=== PATIENT | male | born 1945 | race Caucasian/White ===

== ENCOUNTER 2017-06-20 20:54 | Inpatient (IN) | payer OTHER, MEDICARE ==
[~2017-06-20] VITALS: Ht 165.1 cm; Wt 62.6 kg
[2017-06-20 20:57] VITALS: BP 166/70; PULSE 53; RESP 16; TEMP 97.7; O2SAT 98
[2017-06-20 22:11] VITALS: BP 215/93; PULSE 71; RESP 18; O2SAT 98
--- NOTE | 2017-06-20 23:06 | PD ---
HPI Chief Complaint: Complaint Time Seen by Provider: 23:04 Travel History International Travel<30 days: No Contact w/Intl Traveler<30days: No Traveled to known affect area: No History of Present Illness HPI 72-year-old male with history of hypertension and diabetes presents to the emergency department for large mass to the groin. Reportedly at 8:30 this evening patient complained of feeling a pop and sensation to his family and they brought him to the emergency room for evaluation. Patient has had I wall hernia for some time. Patient complained of nausea there is been no vomiting. PFSH Past Medical History Narrative Medical Diabetes hypertension prostate cancer prostatectomy tobacco use; nursing notes reviewed Cancer: Yes (PROSTATE) Diabetes: Yes Patient Takes Glucophage: Yes Diminished Hearing: Yes (TANANA) Hypertension: Yes Past Surgical History Eye Surgery: Yes (BILAT CATARACTS) Genitourinary Surgery: Yes (PROSTATECTOMY) Social History Alcohol Use: Yes (WINE AT NIGHT) Tobacco Use: Yes (1PPD) Substance Use: No Allergies-Medications (Allergen,Severity, Reaction): Coded Allergies: No Known Allergies (Unverified , 06/20/17) Reported Meds & Prescriptions Reported Meds & Active Scripts Active Reported [id number] Ethyl Esters 1 Gm Cap 2 Gm PO BID Metformin (Metformin HCl) 850 Mg Tab 850 Mg PO TIDPC Fenofibrate 160 Mg Tab 200 Mg PO DAILY Aspirin 81 Mg Chew 81 Mg CHEW DAILY Hydrochlorothiazide 25 Mg Tab 25 Mg PO DAILY Glipizide 5 Mg Tab 5 Mg PO BIDAC Take 30 minutes before a meal Citalopram (Citalopram Hydrobromide) 20 Mg Tab 20 Mg PO DAILY Amlodipine (Amlodipine Besylate) 5 Mg Tab 5 Mg PO DAILY Acarbose 100 Mg Tab 100 Mg PO HS Take with first bite of meal. Acarbose 50 Mg Tab 50 Mg PO AFTERNOON Acarbose 50 Mg Tab 50 Mg PO DAILY Lisinopril 40 Mg Tab 40 Mg PO DAILY Pravastatin 80 Mg Tab 80 Mg PO DAILY Narrative Medication Is metformin, pravastatin, amlodipine, HCTZ, citalopram, aspirin, lisinopril, fenofibrate, glipizide, acarbose Review of Systems Except as stated in HPI: all other systems reviewed are Neg General / Constitutional: No: Fever, Chills HENT: No: Congestion Respiratory: No: Shortness of Breath Gastrointestinal: Positive: Nausea, Abdominal Pain Genitourinary: Positive: Other Musculoskeletal: No: Myalgias, Arthralgias (pelvic mass) Neurologic: No: Weakness Psychiatric: No: Anxiety Hematologic/Lymphatic: No: Lymph Node Enlargement Physical Exam Narrative GENERAL: Well-developed well-nourished male in no acute distress no respiratory distress SKIN: Warm and dry. HEAD: Normocephalic. EYES: No scleral icterus. No injection or drainage. NECK: Supple, trachea midline. No JVD or lymphadenopathy. CARDIOVASCULAR: Regular rate and rhythm without murmurs, gallops, or rubs. RESPIRATORY: Breath sounds equal bilaterally. No accessory muscle use. GASTROINTESTINAL: Abdomen soft, non-tender, nondistended. circumcised male large inguinal hernia with scrotal edema/ MUSCULOSKELETAL: No cyanosis, or edema. BACK: Nontender without obvious deformity. No CVA tenderness. Data Data Last Documented VS Vital Signs Date Time Temp Pulse Resp B/P (MAP) Pulse Ox O2 Delivery O2 Flow Rate FiO2 06/20/17 22:11 71 18 215/93 (133) 98 Room Air 06/20/17 20:57 97.7 Orders Orders Basic Metabolic Panel (Bmp) (06/20/17 23:04) Complete Blood Count With Diff (06/20/17 23:04) Prothrombin Time / Inr (Pt) (06/20/17 23:04) Act Partial Throm Time (Ptt) (06/20/17 23:04) Iv Access Insert/Monitor (06/20/17 23:04) Ecg Monitoring (06/20/17 23:04) Oximetry (06/20/17 23:04) Sodium Chloride 0.9% Flush (Ns Flush) (06/20/17 23:15) Ice/Cold Pack (06/20/17 23:04) Ondansetron Inj (Zofran Inj) (06/20/17 23:15) Hydromorphone Pf Inj (Dilaudid Pf Inj) (06/20/17 23:15) NPO (06/20/17 23:57) Hydromorphone Pf Inj (Dilaudid Pf Inj) (06/21/17 00:15) Labs Laboratory Tests Test 06/20/17 22:50 White Blood Count 13.4 TH/MM3 Red Blood Count 3.86 MIL/MM3 Hemoglobin 11.8 GM/DL Hematocrit 34.2 % Mean Corpuscular Volume 88.5 FL Mean Corpuscular Hemoglobin 30.5 PG Mean Corpuscular Hemoglobin Concent 34.5 % Red Cell Distribution Width 13.5 % Platelet Count 296 TH/MM3 Mean Platelet Volume 8.2 FL Neutrophils (%) (Auto) 85.5 % Lymphocytes (%) (Auto) 9.0 % Monocytes (%) (Auto) 4.7 % Eosinophils (%) (Auto) 0.4 % Basophils (%) (Auto) 0.4 % Neutrophils # (Auto) 11.4 TH/MM3 Lymphocytes # (Auto) 1.2 TH/MM3 Monocytes # (Auto) 0.6 TH/MM3 Eosinophils # (Auto) 0.1 TH/MM3 Basophils # (Auto) 0.1 TH/MM3 CBC Comment DIFF FINAL Differential Comment Prothrombin Time 10.8 SEC Prothromb Time International Ratio 1.0 RATIO Activated Partial Thromboplast Time 24.9 SEC Blood Urea Nitrogen 29 MG/DL Creatinine 1.08 MG/DL Random Glucose 259 MG/DL Calcium Level 9.2 MG/DL Sodium Level 130 MEQ/L Potassium Level 4.7 MEQ/L Chloride Level 97 MEQ/L Carbon Dioxide Level 23.2 MEQ/L Anion Gap 10 MEQ/L Estimat Glomerular Filtration Rate 68 ML/MIN MDM Medical Decision Making Medical Screen Exam Complete: Yes Emergency Medical Condition: Yes Medical Record Reviewed: Yes Differential Diagnosis Inguinal hernia, hernia strangulation or incarceration Narrative Course Patient placed in supine position denies pack applied Zofran and Dilaudid administered Unable to successfully reduce incarcerated right inguinal hernia; additional Dilaudid 0.5 mg administered; call placed to general surgery regarding inability to reduce inguinal hernia and patient informed of plan to take patient to the OR tonight per Dr. Chávez OR --given patient's name; ice pack re-applied @ 12:15 hr hernia now successfully reduced --call placed to Dr Valdez --now at bedside; admit to medicine will repair hernia in the AM Physician Communication Physician Communication call placed to general surgeon discussed with Dr Valdez --notify OR w name; call placed to residents service for Dr Nagy Diagnosis Primary Impression: Inguinal hernia with incarceration Admitting Information Admitting Physician Requests: Admit Sunshine Lerner MD Jun 20, 2017 23:06
[2017-06-20] MEDS ORDERED: SODIUM CHLORIDE 0.9% FLUSH 10 ML FLUSH IV FLUSH PRN (23:15)
[2017-06-20] MEDS ORDERED: HYDROmorphone HCL PF 0.5 MG/0.5 ML SYRINGE IV PUSH ONE (23:15)
[2017-06-20] MEDS ORDERED: ONDANSETRON HCL 4 MG/2 ML VIAL IV PUSH ONE (23:15)
[2017-06-20 23:31] LABS: AUTOMATED NEUTROPHIL # 11.4 TH/MM3 (1.8-7.7); BASOPHIL # 0.1 TH/MM3 (0-0.2); BASOPHIL % 0.4 % (0.0-2.0); EOSINOPHIL # 0.1 TH/MM3 (0-0.4); EOSINOPHIL % 0.4 % (0.0-4.0); HEMATOCRIT 34.2 % (39.0-51.0); HEMO FLAGS DIFF FINAL; LYMPHOCYTE # 1.2 TH/MM3 (1.0-4.8); MEAN CELL VOLUME 88.5 FL (80.0-100.0); MEAN CORPUSCULAR HEMOGLOBIN 30.5 PG (27.0-34.0); MEAN CORPUSCULAR HGB CONC 34.5 % (32.0-36.0); MONO % 4.7 % (0.0-8.0); NEUT % 85.5 % (16.0-70.0); PLATELET COUNT 296 TH/MM3 (150-450); RED BLOOD COUNT 3.86 MIL/MM3 (4.50-5.90); RED CELL DISTRIBUTION WIDTH 13.5 % (11.6-17.2); WHITE BLOOD COUNT 13.4 TH/MM3 (4.0-11.0)
[2017-06-20 23:46] LABS: APTT (PATIENT) 24.9 SEC (24.3-30.1); PROTHROMBIN TIME - PATIENT 10.8 SEC (9.8-11.6)
[2017-06-20] MEDS ORDERED: ASPI81CH CHEW (23:59)
[2017-06-20] MEDS ORDERED: CITA20TA4 PO (23:59)
[2017-06-20] MEDS ORDERED: AMLO5TAB2 PO (23:59)
[2017-06-20] MEDS ORDERED: FENO160T PO (23:59)
[2017-06-20] MEDS ORDERED: LISI40TA PO (23:59)
[2017-06-20] MEDS ORDERED: ACAR50TA PO ×2 (23:59)
[2017-06-20] MEDS ORDERED: METF850T PO (23:59)
[2017-06-20] MEDS ORDERED: HYDR25TA5 PO (23:59)
[2017-06-20] MEDS ORDERED: OMEG1CAP28 PO (23:59)
[2017-06-20] MEDS ORDERED: GLIP5TAB8 PO (23:59)
[2017-06-20] MEDS ORDERED: PRAV80TA2 PO (23:59)
[2017-06-20] MEDS ORDERED: ACAR100T PO (23:59)
[2017-06-21] VITALS (8 sets, daily range): BP systolic 153–205; BP diastolic 57–84; PULSE 63–90; RESP 16–18; TEMP 96.9–98.8; O2SAT 96–99
[2017-06-21 00:01] LABS: BICARBONATE 23.2 MEQ/L (21.0-32.0); POTASSIUM 4.7 MEQ/L (3.5-5.1)
[2017-06-21] MEDS ORDERED: HYDROmorphone HCL PF 0.5 MG/0.5 ML SYRINGE IV PUSH ONE (00:15)
[2017-06-21] MEDS ORDERED: ceFAZolin 2 GM PREMIX 50 ML IV SCH (01:00)
[2017-06-21] MEDS ORDERED: NALOXONE HCL 0.4 MG/ML AMP IV PUSH PRN (01:45)
[2017-06-21] MEDS ORDERED: SODIUM CHLORIDE 0.9% FLUSH 10 ML FLUSH IV FLUSH PRN (01:45)
[2017-06-21] MEDS ORDERED: LACTATED RINGER'S 1000 ML IV PRN (02:45)
[2017-06-21] MEDS ORDERED: INSULIN HUMAN REGULAR 1,000 UNITS/10 ML VIAL SQ PRN (02:45)
[2017-06-21] MEDS ORDERED: CHLORHEXIDINE GLUCONATE 2 % 1 PACK (2 CLOTHS) TOPICAL PRN (02:45)
[2017-06-21] MEDS ORDERED: METOPROLOL TARTRATE 25 MG TAB PO PRN (02:45)
[2017-06-21] MEDS ORDERED: SODIUM CHLORID 0.9% 500 ML IV PRN (02:45)
[2017-06-21] MEDS ORDERED: POVIDONE IODINE 5% (ANTISEPSIS KIT) 4 APPLICATIONS EACH NARE PRN (02:45)
--- NOTE | 2017-06-21 05:25 | MB ---
cc: SCOTT NAGY MD, JOSEPH D. M.D. DATE OF CONSULTATION 06/20/2017 REASON FOR CONSULTATION Incarcerated inguinal hernia right side. HISTORY This is a pleasant 72-year-old gentleman who earlier today, felt a pop in his right groin and had some pain. He was seen by Dr. Lerner who attempted to reduce a large inguinal hernia with bowel. This was unable to be done. They called me in to see the patient. Right before I saw the patient she and Dr. Nagy had reduced the hernia by giving him a little bit more Dilaudid, family at the bedside. He is still having a fair amount of discomfort. He has never had anything like this before where it stuck out but he has known we has had a hernia for he cannot remember how long. PAST HISTORY Significant for - 1. Diabetes. 2. Hypertension. 3. Total prostatectomy about three years ago. This was done laparoscopically over in [place]. 4. He is hard of hearing. No coronary artery disease or pulmonary issues. He had a colonoscopy in the last few years. No other GI symptoms. ALLERGIES He is not known to be allergic to anything. MEDICATIONS 1. Metformin. 2. Finofibrate. 3. Aspirin. 4. Hydrochlorothiazide. 5. Glipizide. 6. Amlodipine. 7. Lisinopril. 8. Pravastatin. PHYSICAL EXAMINATION GENITALIA: On physical exam he is a pleasant gentleman. He has been slightly sedated; his family is at the bedside. He is able to converse with me. He still says his right groin is tender. NECK: Supple. CHEST: Clear. HEART: Regular rate. ABDOMEN: Slightly obese, soft without rebound or guarding. He has an inguinal hernia which is tender. It is reduced at this time. No umbilical hernia. EXTREMITIES: Moves all extremities well; no clubbing, cyanosis or edema. NEUROLOGIC: He is alert. He has been sedated. LABORATORY DATA He has a white count of 13, H&H of 11 and 34. Chemistry showed glucose of 259 and creatinine of 1. ASSESSMENT 1. Incarcerated hernia recently reduced. 2. Diabetes with elevated blood sugar. 3. Slightly elevated white count. 4. Slightly anemic as well. PLAN At this time I think getting him admitted to the medicine service, getting his sugars under control and will repair this tomorrow after his sugar has been controlled as long as he is medically stable. This is discussed with the family at the bedside. They appear to understand. I will keep him n.p.o. and await medical treatment of his medical issues. Yoni Valdez MD JDB/SSB /12:53 AM /5:11 AM
[2017-06-21] MEDS: SODIUM CHLORIDE 0.9% FLUSH 10 ML FLUSH IV FLUSH SCH ×2 (09:00→21:00)
--- NOTE | 2017-06-21 10:43 | HHI.HP ---
[facility] Saurabh Nagy MD Admission Diagnosis R inguinal hernia, post reduction Diagnoses: (1) Inguinal hernia with incarceration Chief Complaint: "I got a hernia." Travel History International Travel<30 Days: No Contact w/Intl Traveler <30 Da: No Traveled to Known Affected Are: No History of Present Illness Written by Binta Stratton, acting as scribe for Dr. Burleson on 06/21/17 at 10:35. This note was transcribed by scribe Binta Stratton PA-C I, Dr. Alonzo Burleson personally performed the history, physical exam, and medical decision making; and confirmed the accuracy of the information in the transcribed note. Authenticated by Dr. Alonzo Burleson on 06/21/17 at 16:42. This is a pleasant 72-year-old male patient with past medical history which includes hypertension, diabetes mellitus type 2, prostate cancer status post past tachypneic and hyperlipidemia. Patient reports he has had right inguinal hernia for, "a while." Patient seems to be a poor historian and is unable to quantify exactly amount of time. Approximately 8:30 pm on the evening of 2016 patient felt a pop sensation associated with severe pain in his right groin and nausea but no vomiting. Patient's family brought him to the emergency room for further evaluation. Patient was found to have a incarcerated right inguinal hernia. The right inguinal hernia was able to be temporarily reduced at bedside. After the hernia was reduced. Patient reports pain has resolved. Patient offers no other complaints at this time denies nausea vomiting diarrhea constipation fevers chills cough congestion shortness of breath or chest pain. Review of Systems ROS Limitations: Poor Historian Except as stated in HPI: all other systems reviewed are Neg Past Family Social History Past Medical History Hypertension, diabetes mellitus type 2, history of prostate cancer status post prostatectomy and hyperlipidemia Past Surgical History Bilateral cataract surgery and prostatectomy Reported Medications [id number] Ethyl Esters 1 Gm Cap 2 Gm PO BID Metformin (Metformin HCl) 850 Mg Tab 850 Mg PO TIDPC Fenofibrate 160 Mg Tab 200 Mg PO DAILY Aspirin 81 Mg Chew 81 Mg CHEW DAILY Hydrochlorothiazide 25 Mg Tab 25 Mg PO DAILY Glipizide 5 Mg Tab 5 Mg PO BIDAC Take 30 minutes before a meal Citalopram (Citalopram Hydrobromide) 20 Mg Tab 20 Mg PO DAILY Amlodipine (Amlodipine Besylate) 5 Mg Tab 5 Mg PO DAILY Acarbose 100 Mg Tab 100 Mg PO HS Take with first bite of meal. Acarbose 50 Mg Tab 50 Mg PO AFTERNOON Acarbose 50 Mg Tab 50 Mg PO DAILY Lisinopril 40 Mg Tab 40 Mg PO DAILY Pravastatin 80 Mg Tab 80 Mg PO DAILY Allergies: Coded Allergies: No Known Allergies (Unverified , 06/20/17) Active Ordered Medications Current Medications Medications (Trade) Dose Ordered Sig/Lucian Route Start Time Stop Time Status Last Admin (NS Flush) 2 ml UNSCH PRN IV FLUSH 06/20/17 23:15 Cefazolin Sodium/ Dextrose 50 ml @ 100 mls/hr ROTARY VENEER MACHINE OPERATOR IV 06/21/17 01:00 06/25/17 00:59 (NS Flush) 2 ml UNSCH PRN IV FLUSH 06/21/17 01:45 (NS Flush) 2 ml BID IV FLUSH 06/21/17 09:00 06/21/17 09:00 (Narcan Inj) 0.4 mg UNSCH PRN IV PUSH 06/21/17 01:45 Lactated Ringer's 1,000 ml @ 30 mls/hr Q24H PRN IV 06/21/17 02:45 06/24/17 02:44 Sodium Chloride 500 ml @ 30 mls/hr [id number] PRN IV 06/21/17 02:45 06/24/17 02:44 (Lopressor) 25 mg ROTARY VENEER MACHINE OPERATOR PRN PO 06/21/17 02:45 06/24/17 02:44 (Betadine 5% Antisepsis Kit) 1 applic ROTARY VENEER MACHINE OPERATOR PRN EACH NARE 06/21/17 02:45 06/24/17 02:44 (Chlorhexidine 2% Cloth) 3 pack ROTARY VENEER MACHINE OPERATOR PRN TOPICAL 06/21/17 02:45 06/24/17 02:44 (NovoLIN R INJ) See Protocol Table ... ROTARY VENEER MACHINE OPERATOR PRN SQ 06/21/17 02:45 06/24/17 02:44 Family History Patient reports his parents are both and does not recall any family history. Patient denies family history of heart disease dementia or stroke Social History Patient drinks occasional glass of wine Tobacco use one pack cigars per day Physical Exam Vital Signs Vital Signs Date Time Temp Pulse Resp B/P (MAP) Pulse Ox O2 Delivery O2 Flow Rate FiO2 06/21/17 08:00 98.8 73 16 186/71 (109) 99 06/21/17 07:56 63 06/21/17 03:00 76 06/21/17 02:45 96.9 76 17 153/57 (89) 98 06/21/17 02:26 06/21/17 01:41 90 16 168/72 (104) 96 Room Air 06/20/17 22:11 71 18 215/93 (133) 98 Room Air 06/20/17 20:57 97.7 53 16 166/70 (102) 98 Room Air Physical Exam GENERAL: This is a well-nourished, well-developed patient, in no apparent distress. SKIN: No rashes, ecchymoses or lesions. Cool and dry. HEAD: Atraumatic. Normocephalic. No temporal or scalp tenderness. EYES: Extraocular motions intact. No scleral icterus. No injection or drainage. CARDIOVASCULAR: Regular rate and rhythm RESPIRATORY: Clear to auscultation. GASTROINTESTINAL: Abdomen soft, non-tender, nondistended. MUSCULOSKELETAL: Extremities without clubbing, cyanosis, or edema. No joint tenderness, effusion, or edema noted. No calf tenderness. Negative Homans sign bilaterally. NEUROLOGICAL: Awake and alert. No focal deficits appreciated. Motor and sensory grossly within normal limits. Five out of 5 muscle strength in all muscle groups. Normal speech. Laboratory Laboratory Tests Test 06/20/17 22:50 White Blood Count 13.4 Red Blood Count 3.86 Hemoglobin 11.8 Hematocrit 34.2 Mean Corpuscular Volume 88.5 Mean Corpuscular Hemoglobin 30.5 Mean Corpuscular Hemoglobin Concent 34.5 Red Cell Distribution Width 13.5 Platelet Count 296 Mean Platelet Volume 8.2 Neutrophils (%) (Auto) 85.5 Lymphocytes (%) (Auto) 9.0 Monocytes (%) (Auto) 4.7 Eosinophils (%) (Auto) 0.4 Basophils (%) (Auto) 0.4 Neutrophils # (Auto) 11.4 Lymphocytes # (Auto) 1.2 Monocytes # (Auto) 0.6 Eosinophils # (Auto) 0.1 Basophils # (Auto) 0.1 CBC Comment DIFF FINAL Differential Comment Prothrombin Time 10.8 Prothromb Time International Ratio 1.0 Activated Partial Thromboplast Time 24.9 Blood Urea Nitrogen 29 Creatinine 1.08 Random Glucose 259 Calcium Level 9.2 Sodium Level 130 Potassium Level 4.7 Chloride Level 97 Carbon Dioxide Level 23.2 Anion Gap 10 Estimat Glomerular Filtration Rate 68 Result Diagram: 06/20/17224906/20/172249 Caprini VTE Risk Assessment Caprini VTE Risk Assessment: Mod/High Risk (score >= 2) Caprini Risk Assessment Model Point Value = 1 Point Value = 2 Point Value = 3 Point Value = 5 Age 41-60 Minor surgery BMI > 25 kg/m2 Swollen legs Varicose veins or History of unexplained or recurrent spontaneous Oral contraceptives or hormone replacement Sepsis (< 1 month) Serious lung disease, including pneumonia (< 1 month) Abnormal pulmonary function Acute myocardial infarction Congestive heart failure (< 1 month) History of inflammatory bowel disease Medical patient at bed rest Age 61-74 Arthroscopic surgery Major open surgery (> 45 min) Laparoscopic surgery (> 45 min) Malignancy Confined to bed (> 72 hours) Immobilizing plaster cast Central venous access Age >= 75 History of VTE Family history of VTE Factor V Leiden Prothrombin [id number] Lupus anticoagulant Anticardiolipin antibodies Elevated serum homocysteine Heparin-induced thrombocytopenia Other congenital or acquired thrombophilia Stroke (< 1 month) Elective arthroplasty Hip, pelvis, or leg fracture Acute spinal cord injury (< 1 month) Prophylaxis Regimen Total Risk Factor Score Risk Level Prophylaxis Regimen 0-1 Low Early ambulation 2 Moderate Order ONE of the following: *Sequential Compression Device (SCD) *Heparin 5000 units SQ BID 3-4 Higher Order ONE of the following medications: *Heparin 5000 units SQ TID *Enoxaparin/Lovenox 40 mg SQ daily (WT < 150 kg, CrCl > 30 mL/min) *Enoxaparin/Lovenox 30 mg SQ daily (WT < 150 kg, CrCl > 10-29 mL/min) *Enoxaparin/Lovenox 30 mg SQ BID (WT < 150 kg, CrCl > 30 mL/min) AND/OR *Sequential Compression Device (SCD) 5 or more Highest Order ONE of the following medications: *Heparin 5000 units SQ TID (Preferred with Epidurals) *Enoxaparin/Lovenox 40 mg SQ daily (WT < 150 kg, CrCl > 30 mL/min) *Enoxaparin/Lovenox 30 mg SQ daily (WT < 150 kg, CrCl > 10-29 mL/min) *Enoxaparin/Lovenox 30 mg SQ BID (WT < 150 kg, CrCl > 30 mL/min) AND *Sequential Compression Device (SCD) Assessment and Plan Problem List: (1) Inguinal hernia with incarceration ICD Code: K40.30 - Unilateral inguinal hernia, with obstruction, without gangrene, not specified as recurrent Status: Acute (2) HTN (hypertension) ICD Code: I10 - Essential (primary) hypertension (3) DM (diabetes mellitus) ICD Code: E11.9 - Type 2 diabetes mellitus without complications (4) Prostate CA ICD Code: C61 - Malignant neoplasm of prostate (5) Hyperlipemia ICD Code: E78.5 - Hyperlipidemia, unspecified Assessment and Plan Incarcerated right inguinal hernia - Reduced - Consult general surgery- case discussed with Dr. Valdez - Planned surgical intervention this afternoon - Continue nothing by mouth except meds Hypertension - Resume home blood pressure medications including amlodipine 5 mg by mouth daily and lisinopril 40 mg by mouth daily - Monitor trend Diabetes mellitus type 2- uncontrolled - Hold oral diabetic medication while in hospital - Start sliding scale insulin with medium dose coverage. Goal glucose 140-180 while in the hospital. - Accu-Cheks before meals at bedtime Hyperlipidemia - Continue home medications including pravastatin and fenofibrate History of prostate cancer status post prostatectomy DVT prophylaxis with SCDs as patient has planned surgical intervention today Physician Certification 2 Midnight Certification Type: Admission for Inpatient Services Order for Inpatient Services The services are ordered in accordance with Medicare regulations or non- Medicare payer requirements, as applicable. In the case of services not specified as inpatient-only, they are appropriately provided as inpatient services in accordance with the 2-midnight benchmark. Estimated LOS (days): 2 days is the estimated time the patient will need to remain in the hospital, assuming treatment plan goals are met and no additional complications. Post-Hospital Plan: Home Binta Stratton Jun 21, 2017 10:43 James Burleson DO Jun 21, 2017 16:44
[2017-06-21] MEDS ORDERED: DEXTROSE 50% IN WATER 50 ML VIAL(D50) IV PUSH PRN (11:15)
[2017-06-21] MEDS ORDERED: GLUCAGON 1 MG/ML VIAL OTHER PRN (11:15)
[2017-06-21] MEDS: LISINOPRIL 20 MG TAB PO SCH (11:19)
[2017-06-21] MEDS: amLODIPine BESYLATE 5 MG TAB PO SCH (11:19)
[2017-06-21] MEDS: INSULIN ASPART SUPPLEMENTAL SCALE SQ SCH ×3 (11:22→22:56)
[2017-06-21] MEDS ORDERED: BUPIVACAINE/EPINEPHRINE 0.5% 50 ML VIAL ONE (11:51)
[2017-06-21] MEDS ORDERED: ACETAMINOPHEN 1000 MG/100 ML 100 ML IV ONE (14:56)
[2017-06-21] MEDS: ACETAMINOPHEN 1000 MG/100 ML 100 ML IV SCH ×2 (16:00→22:57)
[2017-06-21] MEDS ORDERED: NORC5TAB PO (16:16)
--- NOTE | 2017-06-21 16:18 | HHI.PR ---
cc: Yoni Valdez MD Immediate Post Op Note Procedure Date: Jun 21, 2017 Pre Op Diagnosis: (1) Inguinal hernia with incarceration Post Op Diagnosis: (1) Inguinal hernia with incarceration Surgeon: Yoni Valdez Cnc Mechanic(s): C OR record Procedure: Repair of right inguinal hernia with mesh Findings: Large right inguinal hernia Specimen(s) removed: Inguinal hernia sac Estimated blood loss: Minimal Anesthesia: General Drains: None IVF Patient to: PACU Patient Condition: Good Implant/Devices: SEE IMPLANT LOG (if applicable) Date/Time of Procedure: SEE SURGICAL CARE RECORD Yoni Valdez MD Jun 21, 2017 16:18
[2017-06-21] MEDS ORDERED: ACETAMINOPHEN/HYDROcodone 325 MG/5 MG TAB PO PRN (17:15)
[2017-06-21] MEDS ORDERED: DO NOT ADM ANY ANTICOAGULANT DRUGS PRN (18:15)
[2017-06-21] MEDS ORDERED: TEMAZEPAM 15 MG CAP PO PRN (18:30)
[2017-06-21] MEDS: cloNIDine HCL 0.1 MG TAB PO PRN (18:39)
[2017-06-21] MEDS: NICOTINE 14 MG/24 HR PATCH T-DERMAL SCH (18:39)
[2017-06-21] MEDS ORDERED: REMOVE OLD PATCH T-DERMAL SCH (21:00)
--- NOTE | 2017-06-21 21:37 | EKG ---
Date Performed: 06/21/2017 Time Performed: 02:20:59 PTAGE: 72 years EKG: Sinus rhythm WITH SINUS ARRHYTHMIA NORMAL ECG NO PREVIOUS TRACING DOCTOR: You Garcia Interpretating Date/Time 06/21/2017 21:36:21
--- NOTE | 2017-06-21 22:25 | MP ---
cc: YONI VALDEZ DATE OF PROCEDURE 06/21/17 PREOPERATIVE DIAGNOSIS Incarcerated right inguinal hernia, reduced. POSTOPERATIVE DIAGNOSIS Incarcerated right inguinal hernia, reduced. PROCEDURE Repair of indirect right inguinal hernia with mesh. ANESTHESIA General per LMA. SURGEON Dr. Valdez INDICATIONS This is a 72-year-old gentleman who came in the emergency room. He had an incarcerated right inguinal hernia. Plans were made for above. After this was reduced he was put in the hospital, sugars controlled by the medicine seen. PROCEDURE IN DETAIL The patient taken to the operating room, placed in the supine position. After anesthesia his abdomen and groin were prepped with Betadine. A time-out was done. We make an oblique incision overlying the internal and external ring after anesthetizing with Marcaine solution, dissect down through Kim's fascia identifying the external oblique aponeurosis. This was incised. Cord structures surrounded with a Adi drain. The hernia sac is identified, is an indirect type. It is a rather significant size. We were able to reduce this from the cord structures, . We opened it. All the contents are reduced. We then are able to twist upon itself, ligated at the base with Ethibond suture and amputate the hernia sac. After this was done we then placed a piece of polypropylene mesh secure it to the pubic tubercle, Cisco's ligament, the iliopubic tract out laterally and the conjoined tendon medially. All this done with the 0 Ethibond. Tails were then fashioned and secured to themselves to the internal oblique aponeurosis. The external oblique aponeurosis was closed with 2-0 Vicryl, Ikm's with the 3-0 Vicryl, skin with 4-0 Vicryl. Steri-Strips applied. Sterile bandage applied. The patient tolerated the procedure well, had no immediate postop complications. Yoni Valdez MD JDB/NAOMI /4:10 PM /10:08 PM JOIE
[2017-06-22] VITALS: BP 167/62; PULSE 82; RESP 16; TEMP 97.7; O2SAT 97
[2017-06-22 04:00] VITALS: BP 171/69; PULSE 79; RESP 16; TEMP 96.7; O2SAT 96
[2017-06-22] MEDS: ACETAMINOPHEN 1000 MG/100 ML 100 ML IV SCH ×2 (04:55→08:53)
[2017-06-22] MEDS: cloNIDine HCL 0.1 MG TAB PO PRN (05:05)
[2017-06-22 07:32] VITALS: BP 121/60; PULSE 75; RESP 19; TEMP 97.5; O2SAT 99
[2017-06-22] MEDS: INSULIN ASPART SUPPLEMENTAL SCALE SQ SCH (08:00)
[2017-06-22 08:37] LABS: AUTOMATED NEUTROPHIL # 7.1 TH/MM3 (1.8-7.7); BASOPHIL % 0.2 % (0.0-2.0); EOSINOPHIL % 0.4 % (0.0-4.0); HEMATOCRIT 31.1 % (39.0-51.0); HEMO FLAGS DIFF FINAL; LYMPH % 19.3 % (9.0-44.0); LYMPHOCYTE # 1.9 TH/MM3 (1.0-4.8); MEAN CELL VOLUME 88.3 FL (80.0-100.0); MEAN CORPUSCULAR HEMOGLOBIN 30.1 PG (27.0-34.0); MONO % 6.8 % (0.0-8.0); NEUT % 73.3 % (16.0-70.0); PLATELET COUNT 265 TH/MM3 (150-450); RED BLOOD COUNT 3.53 MIL/MM3 (4.50-5.90); RED CELL DISTRIBUTION WIDTH 13.3 % (11.6-17.2); WHITE BLOOD COUNT 9.7 TH/MM3 (4.0-11.0)
[2017-06-22] MEDS: amLODIPine BESYLATE 5 MG TAB PO SCH (08:52)
[2017-06-22] MEDS: LISINOPRIL 20 MG TAB PO SCH (08:52)
[2017-06-22] MEDS: NICOTINE 14 MG/24 HR PATCH T-DERMAL SCH (08:53)
[2017-06-22] MEDS: SODIUM CHLORIDE 0.9% FLUSH 10 ML FLUSH IV FLUSH SCH (08:56)
[2017-06-22] MEDS ORDERED: FENOFIBRATE 200 MG PO SCH (09:00)
[2017-06-22] MEDS ORDERED: CITALOPRAM HYDROBROMIDE 20 MG TAB PO SCH (09:00)
[2017-06-22] MEDS ORDERED: REMOVE OLD PATCH T-DERMAL SCH (09:00)
[2017-06-22] MEDS ORDERED: HYDROCHLOROTHIAZIDE 25 MG TAB PO SCH (09:00)
[2017-06-22] MEDS ORDERED: PRAVASTATIN SOD 80 MG TAB PO SCH (09:00)
[2017-06-22 09:32] LABS: BICARBONATE 23.9 MEQ/L (21.0-32.0); POTASSIUM 3.9 MEQ/L (3.5-5.1)
[2017-06-22 10:27] VITALS: PULSE 64
--- NOTE | 2017-06-22 10:59 | HHI.PR ---
Subjective Remarks Follow up for right inguinal hernia s/p surgery. Patient is doing well. No fever , chills. Ambulating, tolerating diet well. Wants to go home. D/W with surgery, cleared for discharge. Objective Vitals Vital Signs Date Time Temp Pulse Resp B/P (MAP) Pulse Ox O2 Delivery O2 Flow Rate FiO2 06/22/17 10:27 64 06/22/17 07:32 97.5 75 19 121/60 (80) 99 06/22/17 04:00 96.7 79 16 171/69 (103) 96 06/22/17 00:00 97.7 82 16 167/62 (97) 97 06/21/17 20:00 98.1 79 17 196/84 (121) 99 06/21/17 17:30 98.4 68 18 205/81 (122) 99 06/21/17 17:15 98.6 69 14 175/74 (107) 99 Room Air 06/21/17 17:00 66 14 172/74 (106) 100 Room Air 06/21/17 16:45 75 20 172/68 (102) 100 Room Air 06/21/17 16:30 72 14 172/72 (105) 100 Nasal Cannula 2 06/21/17 16:18 98.7 79 13 195/81 (119) 100 Nasal Cannula 2 06/21/17 12:00 98.5 69 16 199/64 (109) 99 I/O 06/21/17 06/21/17 06/21/17 06/22/17 06/22/17 06/22/17 07:00 15:00 23:00 07:00 15:00 23:00 Intake Total 1550 ml 580 ml Output Total 1305 ml 400 ml Balance 245 ml 180 ml Intake Oral 600 ml 480 ml IV Total 50 ml 100 ml Other 900 ml Output Urine Total 1300 ml 400 ml Estimated Blood Loss 5 ml Result Diagram: 06/22/1762006/22/1721 A/P Problem List: (1) Inguinal hernia with incarceration ICD Code: K40.30 - Unilateral inguinal hernia, with obstruction, without gangrene, not specified as recurrent Status: Acute (2) HTN (hypertension) ICD Code: I10 - Essential (primary) hypertension (3) DM (diabetes mellitus) ICD Code: E11.9 - Type 2 diabetes mellitus without complications (4) Prostate CA ICD Code: C61 - Malignant neoplasm of prostate (5) Hyperlipemia ICD Code: E78.5 - Hyperlipidemia, unspecified Assessment and Plan Incarcerated right inguinal hernia - Reduced - Consult general surgery- case discussed with Dr. Valdez - Planned surgical intervention this afternoon - Continue nothing by mouth except meds Hypertension - Resume home blood pressure medications including amlodipine 5 mg by mouth daily and lisinopril 40 mg by mouth daily - Monitor trend Diabetes mellitus type 2- uncontrolled - Hold oral diabetic medication while in hospital - Start sliding scale insulin with medium dose coverage. Goal glucose 140-180 while in the hospital. - Accu-Cheks before meals at bedtime Hyperlipidemia - Continue home medications including pravastatin and fenofibrate History of prostate cancer status post prostatectomy DVT prophylaxis with SCDs as patient has planned surgical intervention today Discharge patient to home Condition on discharge: Improved Diabetic Diet as tolerated [place] activity Rx written: [place] 5-325 PO Q6hrs #21. Follow-up with primary care physician PRN. General surgeon in 10 days. James Burleson DO Jun 22, 2017 10:59
== END 2017-06-22 14:05 | disposition home or self-care (01) | DRG 352 ==
LOC: NEPC 20:54 → NEDA 06-21 01:35 → OBSVTOIN 06-21 01:40 → N06A 06-21 02:33
PROVIDERS: ADMIT Hospitalist; ATTEND Hospitalist
PROC: 0YU50JZ Supplement Right Inguinal Region with Synthetic Substitute, Open Approach (ICD-10-PCS; principal; 2017-06-21 15:05)
DX: K40.30 Unilateral inguinal hernia, with obstruction, without gangrene, not specified as recurrent (principal); E11.65 Type 2 diabetes mellitus with hyperglycemia; I10 Essential (primary) hypertension; Z72.0 Tobacco use; N50.89 Other specified disorders of the male genital organs; H91.90 Unspecified hearing loss, unspecified ear; Z85.46 Personal history of malignant neoplasm of prostate; E78.5 Hyperlipidemia, unspecified; Z90.79 Acquired absence of other genital organ(s); Z79.84 Long term (current) use of oral hypoglycemic drugs
CPT/HCPCS: 80048; 82948; 85025; 85610; 85730; 88302; 93005; 96374; 96375; J1170; C1781; J0131; J1815; J2405; J7120